=== PATIENT | female | born 2000 | race Caucasian/White ===

== ENCOUNTER 2018-12-14 20:19 | Emergency (ER) | payer MEDICAID ==
[~2018-12-14] VITALS: Ht 160 cm; Wt 92.9 kg
--- NOTE | 2018-12-14 20:28 | NUR ---
FIRST CONTACT WITH PT. Pt ambulates to room from triage and from room to restroom with steady gait and balance. NADN. Pt provided urine sample of concentrated yellow urine. Pt resting on gurney in hospital gown. Pt states, "Starting yesterday I had pain here (right flank). I took aleve at home. On the way here it was an 8/10 pain. It hurts to pee, like pressure." All safety measures in place. Call light within reach. Pt denies vomitting and diarrhea, chest pain, or shortness of breath, or trauma. Pt states nausea today. Pt denies blood in urine.
[2018-12-14 20:43] LABS: HCG UR SG 1.033 (1.003-1.030); MICROSCOPIC NOT IND
[2018-12-14] MEDS ORDERED: KETOROLAC 30 MG/1 ML ONE (20:45)
[2018-12-14 20:50] LABS: CULTURE INDICATED? NO
--- NOTE | 2018-12-14 20:51 | NUR ---
Provided medication per [facility]. Pt tolerated IM medication with out complicaitons. Pt appreciative. No other needs expressed at this time.
[2018-12-14] MEDS ORDERED: KETOROLAC 30 MG/1 ML IM ONE (21:00)
[2018-12-14] MEDS ORDERED: HYDROcodone/APAP 5/325 TABLET PO ONE (21:30)
[2018-12-14] MEDS ORDERED: HYDROcodone/APAP 5/325 TABLET ONE (22:02)
--- NOTE | 2018-12-14 22:04 | NUR ---
Provided medication per [facility]. Pt states, "The shot didn't help my pain at all, my pain is like a 9 now (right flank pain)."
[2018-12-14 22:19] LABS: BASOPHILS # (AUTO) 0.08 x10^3/uL (0-0.3); BASOPHILS % (AUTO) 1 % (0-1); EOSINOPHILS # (AUTO) 0.24 x10^3/uL (0-0.8); EOSINOPHILS % (AUTO) 2 % (1-7); LYMPHOCYTES # (AUTO) 2.71 x10^3/uL (1-6.1); LYMPHOCYTES % (AUTO) 26 % (22-44); MD NO; MEAN CORPUSCULAR HEMOGLOBIN 29.4 pg (27.0-34.8); MEAN CORPUSCULAR HGB CONC 33.9 g/dL (32.4-35.8); MEAN CORPUSCULAR VOLUME 86.7 fL (80-100); MEAN PLATELET VOLUME 9.2 fL (7.4-10.4); MONOCYTES # (AUTO) 0.82 x10^3/uL (0-1.4); MONOCYTES % (AUTO) 8 % (2-9); NEUTROPHILS # (AUTO) 6.55 x10^3/uL (1.8-8.0); NEUTROPHILS % (AUTO) 63 % (42-75); PLATELET COUNT 220 x10^3/uL (130-400); RED BLOOD COUNT 4.69 x10^6/uL (3.82-5.3); RED CELL DISTRIBUTION WIDTH 12.7 % (9.6-15.2)
[2018-12-14 22:25] LABS: ALANINE AMINOTRANSFERASE 24 U/L (12-78); ALBUMIN 3.6 g/dL (3.4-5.0); ANION GAP 4 mmol/L (5-15); CALCIUM 8.9 mg/dL (8.5-10.1); CHLORIDE 111 mmol/L (98-107)
[2018-12-14 22:27] LABS: ALKALINE PHOSPHATASE 73 U/L (45-117); BILIRUBIN,TOTAL 0.1 mg/dL (0.2-1.0)
--- NOTE | 2018-12-14 23:08 | NUR ---
Pt states, "The pain is bearable now. It's like a 6, maybe a 5 now, I am just really tired."
[2018-12-14 23:09] VITALS: BP 120/62
--- NOTE | 2018-12-14 23:46 | NUR ---
Patient given discharge instructions and they have confirmed that they understand the instructions. Patient ambulatory with steady gait. Pt taking an Uber taxi home. Pt left with prescription, discharge paperwork, and all personal belongings.
== END 2018-12-14 23:48 | disposition home or self-care (01) ==
LOC: ED 20:40
DX: R10.9 Unspecified abdominal pain (principal)
CPT/HCPCS: 36415; 76830; 80053; 81003; 81025; 83690; 85025; 96372; 99284; J1885